=== PATIENT | female | born 1965 | race Two or more races ===

== ENCOUNTER 2023-05-03 19:19 | Inpatient (IN) | payer OTHER ==
[~2023-05-03] VITALS: Ht 66 cm; Wt 77.1 kg
[2023-05-03] MEDS ORDERED: FAMOTIDINE/PF 20 MG in 0.9 % SODIUM CHLORIDE 8 ML IV PUSH STA (19:47)
[2023-05-03] MEDS ORDERED: ONDANSETRON HCL 2 MG/ML VIAL IV ONE (20:00)
[2023-05-03] MEDS ORDERED: 0.9 % SODIUM CHLORIDE 1,000 ML IV SCH (20:00)
[2023-05-03] MEDS ORDERED: KETOROLAC TROMETHAMINE 30 MG VIAL IV ONE (20:00)
[2023-05-03 20:22] LABS: MEAN CELL VOLUME 88.5 fL (80.00-100.00); MEAN CORPUSCULAR HGB CONC 35.6 g/dl (32.0-36.0); RED BLOOD COUNT 2.33 M/uL (4.00-6.00); RED CELL DISTRIBUTION WIDTH 15.6 % (11.5-14.5)
[2023-05-03 20:44] LABS: MEAN CORPUSCULAR HEMOGLOBIN 31.3 pg (27.00-32.0)
[2023-05-03 20:45] LABS: ALBUMIN 3.8 gm/dL (3.4-5.0); BILIRUBIN TOTAL 3.89 mg/dL (0.3-1.2); CALCIUM 8.7 mg/dL (8.5-10.1); CREATININE SERUM 1.65 mg/dL (0.55-1.02); GFR 32.3; GLOBULINA 3.8 G/DL (2.4-3.5); TOTAL PROTEIN 7.6 gm/dL (6.4-8.2)
[2023-05-03 20:46] LABS: HEMATOCRIT 20.6 % (36.0-45.00); HEMOGLOBIN 7.3 g/dL (12.0-15.00)
[2023-05-03 20:49] LABS: PLATELET COUNT 17 K/uL (150-450)
[2023-05-03 20:50] LABS: POTASSIUM 2.89 mEq/L (3.5-5.1)
[2023-05-03] MEDS ORDERED: CEFTRIAXONE SODIUM 2,000 MG VIAL IV ONE (21:30)
[2023-05-03 21:34] LABS: ALT/SGPT 32 U/L (12-78); AST/SGOT 72 U/L (15-37); PHOSPHOKINASE CREATININE 275 U/L (26-192)
[2023-05-03 21:35] LABS: LDH 1692 U/L (84-246)
[2023-05-03] MEDS ORDERED: NITROGLYCERIN IN 5 % DEXTROSE 250 ML IV SCH (22:30)
[2023-05-03 22:33] LABS: ALBUMIN 3.8 gm/dL (3.4-5.0); BILIRUBIN TOTAL 3.68 mg/dL (0.3-1.2); BILIRUBIN,CONJUGATED 0.71 mg/dL (0.0-0.2); BILIRUBIN,UNCONJUGATED 2.97 mg/dL (0.0-0.6); TOTAL PROTEIN 7.6 gm/dL (6.4-8.2)
[2023-05-03 22:46] LABS: INR 1.09; PARTIAL THROMBOPLASTIN TIME 28.6 SECONDS (22.0-34.0); PROTHROMBIN TIME 11.4 SECONDS (9.0-11.5)
[2023-05-03 23:12] LABS: URINE APPEARANCE Cloudy; URINE BILIRRUBIN Small (NEGATIVE); URINE BLOOD Large; URINE COLOR Dark Yellow; URINE GLUCOSE Negative (NEGATIVE); URINE LEUKOCYTE Trace; URINE NITRATE Negative
[2023-05-03 23:16] LABS: URINE BACTERIA 141.1 uL (0.0-1933); URINE EPITHELIAL CELLS 51.7 uL (0.0-38.8); URINE RBC 153.4 uL (0.0-20.8); URINE WBC 15.7 uL (0.0-23.2)
[2023-05-03] MEDS ORDERED: ONDANSETRON HCL 4 MG in 0.9 % SODIUM CHLORIDE 50 ML IV PRN (23:30)
[2023-05-03] MEDS ORDERED: ACETAMINOPHEN 500 MG GEL..CAP PO PRN (23:30)
[2023-05-03] MEDS ORDERED: METHYLPREDNISOLONE SOD SUCC 125 MG VIAL IV ONE (23:45)
[2023-05-04 00:12] LABS: URINE PROTEIN 300 (NEGATIVE)
[2023-05-04] MEDS ORDERED: POTASSIUM CHLORIDE IN WATER 100 ML IV SCH (01:00)
[2023-05-04] MEDS ORDERED: METHYLPREDNISOLONE SOD SUCC 125 MG VIAL IV SCH (02:00)
[2023-05-04 03:36] LABS: MAGNESIUM 1.8 mg/dL (1.8-2.4)
[2023-05-04 03:58] LABS: C-REACTIVE PROTEIN 4.12 MG/DL (0.00-0.29)
[2023-05-04 05:43] LABS: ABG PH 7.457 (7.35-7.45); ABG PO2 107.1 mmHg (80-100); ABG pCO2 32.9 mmHg (35-45); BASE EXCESS -0.3 mmol/l; BICARBONATE 22.7 mmol/l (23-25); SaO2 98.4 %; Tco2 23.7 mmol/l
[2023-05-04 05:44] LABS: allen test SATISFACTORY; o2 21 %; puncture site RADIAL RIGHT
[2023-05-04 07:11] LABS: MEAN CELL VOLUME 89.3 fL (80.00-100.00); MEAN CORPUSCULAR HGB CONC 35.5 g/dl (32.0-36.0); RED BLOOD COUNT 1.94 M/uL (4.00-6.00); RED CELL DISTRIBUTION WIDTH 15.7 % (11.5-14.5)
[2023-05-04 07:36] LABS: HEMATOCRIT 17.3 % (36.0-45.00); MEAN CORPUSCULAR HEMOGLOBIN 31.4 pg (27.00-32.0)
[2023-05-04 07:38] LABS: HEMOGLOBIN 6.1 g/dL (12.0-15.00); PLATELET COUNT 12 K/uL (150-450)
[2023-05-04 08:46] LABS: PLATELET ESTIMATE DECREASED (NORMAL)
[2023-05-04] MEDS ORDERED: CEFTRIAXONE SODIUM 2,000 MG in 0.9 % SODIUM CHLORIDE 100 ML IV SCH (09:00)
[2023-05-04] MEDS ORDERED: PANTOPRAZOLE SODIUM 40 MG/VIAL VIAL IV SCH (09:00)
[2023-05-04] MEDS ORDERED: FUROsemide 40 MG/4 ML VIAL IV STA (22:05)
[2023-05-05] MEDS ORDERED: PROPOFOL 100 ML IV SCH (00:30)
[2023-05-05 02:31] LABS: ABG PH 7.446 (7.35-7.45); ABG PO2 446.3 mmHg (80-100); BASE EXCESS -8.9 mmol/l
[2023-05-05 02:32] LABS: BICARBONATE 12.2 mmol/l (23-25); Tco2 12.7 mmol/l; allen test SATISFACTORY; o2 100 %; puncture site RADIAL RIGHT
[2023-05-05 02:33] LABS: ABG pCO2 18.1 mmHg (35-45)
[2023-05-05 02:55] LABS: MEAN CELL VOLUME 87.6 fL (80.00-100.00); MEAN CORPUSCULAR HGB CONC 34.9 g/dl (32.0-36.0); RED BLOOD COUNT 2.57 M/uL (4.00-6.00); RED CELL DISTRIBUTION WIDTH 17.2 % (11.5-14.5)
[2023-05-05] MEDS ORDERED: 0.9 % SODIUM CHLORIDE 1,000 ML IV SCH (03:00)
[2023-05-05] MEDS ORDERED: NOREPINEPHRINE BITARTRATE 1 MG/ML AMPUL IV SCH (03:30)
[2023-05-05] MEDS ORDERED: 0.9 % SODIUM CHLORIDE 500 ML IV ONE (03:30)
[2023-05-05 03:43] LABS: MEAN CORPUSCULAR HEMOGLOBIN 30.7 pg (27.00-32.0)
[2023-05-05 03:45] LABS: HEMATOCRIT 22.5 % (36.0-45.00)
[2023-05-05 03:55] LABS: PLATELET COUNT 19 K/uL (150-450)
[2023-05-05 03:56] LABS: HEMOGLOBIN 7.9 g/dL (12.0-15.00)
[2023-05-05 07:05] LABS: MEAN CELL VOLUME 89.7 fL (80.00-100.00); MEAN CORPUSCULAR HGB CONC 34.2 g/dl (32.0-36.0); RED BLOOD COUNT 2.29 M/uL (4.00-6.00); RED CELL DISTRIBUTION WIDTH 18.5 % (11.5-14.5)
[2023-05-05] MEDS ORDERED: NOREPINEPHRINE BITARTRATE 8 MG in DEXTROSE 5 % IN WATER 250 ML IV SCH (07:15)
[2023-05-05 07:28] LABS: ALBUMIN 2.9 gm/dL (3.4-5.0); BILIRUBIN TOTAL 3.22 mg/dL (0.3-1.2); CALCIUM 7.4 mg/dL (8.5-10.1); CREATININE SERUM 3.51 mg/dL (0.55-1.02); GFR 13.52; GLOBULINA 3.1 G/DL (2.4-3.5); MAGNESIUM 2.4 mg/dL (1.8-2.4); POTASSIUM 4.36 mEq/L (3.5-5.1)
[2023-05-05 07:58] LABS: HEMATOCRIT 20.5 % (36.0-45.00); MEAN CORPUSCULAR HEMOGLOBIN 30.5 pg (27.00-32.0)
[2023-05-05 07:59] LABS: PLATELET COUNT 38 K/uL (150-450)
[2023-05-05] MEDS ORDERED: FUROsemide 20 MG/2 ML VIAL IV SCH (08:45)
[2023-05-05] MEDS ORDERED: SODIUM BICARBONATE 1 MEQ/ML DISP.SYRIN 50ML IV SCH (08:45)
[2023-05-05] MEDS ORDERED: SODIUM BICARBONATE 1 MEQ/ML DISP.SYRIN 50ML IV STA (08:49)
[2023-05-05] MEDS ORDERED: DIPHENHYDRAMINE HCL 50 MG/ML VIAL 1ML IV SCH (09:00)
[2023-05-05] MEDS ORDERED: CALCIUM GLUCONATE 100 MG/ML VIAL IV SCH (09:00)
[2023-05-05] MEDS ORDERED: LevETIRAcetam 500 MG/5 ML VIAL IV STA (09:10)
[2023-05-05 10:08] LABS: ABG PH 7.353 (7.35-7.45); ABG PO2 357.4 mmHg (80-100)
[2023-05-05 10:09] LABS: BASE EXCESS -13.4 mmol/l; BICARBONATE 9.2 mmol/l (23-25); SaO2 99.9 %; Tco2 9.7 mmol/l
[2023-05-05 10:10] LABS: allen test SATISFACTORY; o2 100 %; puncture site RADIAL LEFT
[2023-05-05] MEDS ORDERED: AA 4.25%/CAL/LYTES/DEXT 5% 1,000 ML PERIFERAL SCH (17:00)
[2023-05-05] MEDS ORDERED: LevETIRAcetam 5 MG/1 ML REDILUIDO IV SCH (21:00)
[2023-05-06] MEDS ORDERED: NOREPINEPHRINE BITARTRATE 8 MG IV SCH (03:30)
== END 2023-05-05 11:15 | disposition expired | DRG 545 ==
LOC: ER 19:21 → EDBD 19:21 → ER 20:19 → ICU-2 23:47 → ICU 05-05 04:59
PROVIDERS: General Practice; Internal Medicine Hematology & Oncology; ADMIT Internal Medicine; ATTEND Internal Medicine
PROC: BW21ZZZ Computerized Tomography (CT Scan) of Abdomen and Pelvis (ICD-10-PCS; 2023-05-03)
PROC: B246ZZZ Ultrasonography of Right and Left Heart (ICD-10-PCS; 2023-05-03)
PROC: B020ZZZ Computerized Tomography (CT Scan) of Brain (ICD-10-PCS; 2023-05-03)
PROC: BW21ZZZ Computerized Tomography (CT Scan) of Abdomen and Pelvis (ICD-10-PCS; 2023-05-03)
PROC: 4A12X4Z Monitoring of Cardiac Electrical Activity, External Approach (ICD-10-PCS; 2023-05-03)
PROC: 3E0F7SF Introduction of Other Gas into Respiratory Tract, Via Natural or Artificial Opening (ICD-10-PCS; 2023-05-03)
PROC: 30243R1 Transfusion of Nonautologous Platelets into Central Vein, Percutaneous Approach (ICD-10-PCS; principal; 2023-05-04)
PROC: 30243N1 Transfusion of Nonautologous Red Blood Cells into Central Vein, Percutaneous Approach (ICD-10-PCS; 2023-05-04)
PROC: 06HM33Z Insertion of Infusion Device into Right Femoral Vein, Percutaneous Approach (ICD-10-PCS; 2023-05-04)
PROC: 0BH18EZ Insertion of Endotracheal Airway into Trachea, Via Natural or Artificial Opening Endoscopic (ICD-10-PCS; 2023-05-05)
PROC: 5A1935Z Respiratory Ventilation, Less than 24 Consecutive Hours (ICD-10-PCS; 2023-05-05)
PROC: B020ZZZ Computerized Tomography (CT Scan) of Brain (ICD-10-PCS; 2023-05-05)
PROC: 5A12012 Performance of Cardiac Output, Single, Manual (ICD-10-PCS; 2023-05-05)
DX: M31.19 Other thrombotic microangiopathy (principal); I21.4 Non-ST elevation (NSTEMI) myocardial infarction; J96.01 Acute respiratory failure with hypoxia; A27.9 Leptospirosis, unspecified; D59.4 Other nonautoimmune hemolytic anemias; N17.9 Acute kidney failure, unspecified; E87.20 Acidosis, unspecified; G93.49 Other encephalopathy; E09.65 Drug or chemical induced diabetes mellitus with hyperglycemia; T38.0X5A Adverse effect of glucocorticoids and synthetic analogues, initial encounter; I46.9 Cardiac arrest, cause unspecified; R57.0 Cardiogenic shock; R56.9 Unspecified convulsions; E87.6 Hypokalemia; R41.82 Altered mental status, unspecified; E80.6 Other disorders of bilirubin metabolism; I12.9 Hypertensive chronic kidney disease with stage 1 through stage 4 chronic kidney disease, or unspecified chronic kidney disease; N18.9 Chronic kidney disease, unspecified; F17.200 Nicotine dependence, unspecified, uncomplicated